=== PATIENT | female | born 1975 | race Two or more races ===

== ENCOUNTER 2022-11-06 21:36 | Emergency (ER) | payer MEDICAID, OTHER ==
[~2022-11-06] VITALS: Ht 157.5 cm; Wt 95.9 kg
[2022-11-06] MEDS ORDERED: MORPHINE SULFATE INJ 2 MG/ml SYRG IM ONE (23:15)
[2022-11-06] MEDS ORDERED: ONDANSETRON ODT 4 MG TAB PO ONE (23:15)
[2022-11-06] MEDS ORDERED: NAP500T PO (23:21)
[2022-11-06] MEDS ORDERED: CARI250T PO (23:21)
[2022-11-06 23:57] LABS: Urine Bacteria FEW /hpf (None Seen); Urine Blood Negative /uL (Negative); Urine Clarity HAZY (Clear); Urine Color Yellow (Yellow); Urine Hyaline Cast FEW /lpf (0 - 2); Urine Mucus FEW (None Seen); Urine Protein, UAD 1+ (Negative); Urine Specific Gravity 1.029 (1.001-1.035); Urine WBC 14 /hpf (0 - 5)
[2022-11-07 00:03] VITALS: BP 132/82; PULSE 64; RESP 18; O2SAT 97
[2022-11-07] MEDS ORDERED: SULF800T23 PO (00:34)
== END 2022-11-07 02:04 | disposition home or self-care (01) ==
LOC: ER 21:36
DX: M54.50 Low back pain, unspecified (principal); G89.29 Other chronic pain; N39.0 Urinary tract infection, site not specified; Z90.49 Acquired absence of other specified parts of digestive tract
CPT/HCPCS: 72131; 81001; 96372; 99285; J2270; Q0162

== ENCOUNTER 2022-11-28 04:04 | Emergency (ER) | payer MEDICAID ==
[~2022-11-28] VITALS: Ht 154.9 cm; Wt 95.0 kg
[~2022-11-28 04:04] MED LIST: CARI250T PO; NAP500T PO; SULF800T23 PO
[2022-11-28] MEDS ORDERED: ACE3T PO (04:42)
[2022-11-28] MEDS ORDERED: CYCL-837 PO (04:42)
[2022-11-28] MEDS ORDERED: HYDROmorphone HCL 2 MG/ML VL/or syr IM ONE (04:45)
[2022-11-28] MEDS ORDERED: ONDANSETRON ODT 4 MG TAB PO ONE (04:45)
[2022-11-28 05:06] VITALS: O2SAT 98
[2022-11-28 05:32] VITALS: BP 131/81; PULSE 71; RESP 18
== END 2022-11-28 05:40 | disposition home or self-care (01) ==
LOC: ER 04:04
DX: G89.29 Other chronic pain (principal); M54.59 Other low back pain; Z79.899 Other long term (current) drug therapy; Z90.49 Acquired absence of other specified parts of digestive tract
CPT/HCPCS: 96372; 99283; J1170; Q0162

== ENCOUNTER 2022-11-30 09:41 | Inpatient (IN) | payer MEDICAID ==
[~2022-11-30] VITALS: Ht 154.9 cm; Wt 94.7 kg
[~2022-11-30 09:41] MED LIST changes: +ACE3T PO; +CYCL-837 PO
[2022-11-30 10:37] LABS: Basophils # (auto) 0 10 ^3/uL (0-0.2); Basophils % (auto) 0.4 % (0.0-2.0); Eosinophils # (auto) 0.1 10 ^3/uL (0-0.8); Lymphocytes # (auto) 1.7 10 ^3/uL (0.4-5.4); Lymphocytes % (auto) 24.2 % (10.0-50.0); Mean Corpuscular Hemoglobin 29.4 pg (28.0-32.0); Mean Corpuscular Hgb Conc. 33.2 g/dL (32.0-36.0); Mean Corpuscular Volume 88.6 fL (80.0-100.0); Monocytes # (auto) 0.3 10 ^3/uL (0-1.3); Monocytes % (auto) 4.6 % (0.0-12.0); Neutrophils # (auto) 4.9 10 ^3/uL (1.6-8.6); Neutrophils % (auto) 69.8 % (37.0-80.0); Red Cell Distribution Width 14.8 % (11.8-14.3); White Blood Cell 7.1 10^3/uL (4.4-10.8)
[2022-11-30 10:59] LABS: Alanine Aminotransferase 37 U/L (7-40); Albumin 4.7 g/dL (3.2-4.8); Alkaline Phosphatase 79 U/L (46-116); Anion Gap 5 (5-15); Aspartate Aminotransferase 19 U/L (13-40); BUN/Creatinine Ratio 15.3 (10.0-20.0); Blood Urea Nitrogen 9 mg/dL (9-23); Calcium 9.4 mg/dL (8.7-10.4); Carbon Dioxide 31 mmol/L (20-30); Chloride 104 mmol/L (98-107); Glucose 100 mg/dL (74-106); Magnesium 2.2 mg/dL (1.6-2.6); Potassium 3.9 mmol/L (3.5-5.1); Sodium 140 mmol/L (136-145)
[2022-11-30 11:00] LABS: Bilirubin, Total 0.6 mg/dL (0.2-1.0); Total Protein 6.7 g/dL (5.7-8.2)
[2022-11-30] MEDS ORDERED: methylPREDNISolone SOD SUCC 40 MG/ML VL IM ONE (13:30)
[2022-11-30] MEDS ORDERED: PRED20TA2 PO (15:32)
[2022-11-30] MEDS ORDERED: PRED10TA PO (15:32)
[2022-11-30] MEDS ORDERED: PANT40TA2 PO (15:32)
[2022-11-30] MEDS ORDERED: ONDANSETRON HCL 4 MG/2 ML VIAL IV ONE (16:15)
[2022-11-30] MEDS ORDERED: HYDROmorphone HCL 2 MG/ML VL/or syr IV ONE (16:15)
[2022-11-30 19:37] VITALS: O2SAT 94
[2022-11-30] MEDS ORDERED: CARISOPRODOL 350 MG TAB PO PRN (21:15)
[2022-11-30] MEDS ORDERED: TEMAZEPAM 15 MG CAP PO PRN (21:15)
[2022-11-30] MEDS ORDERED: ONDANSETRON HCL 4 MG/2 ML VIAL IV PRN (21:15)
[2022-11-30] MEDS ORDERED: NITROGLYCERIN 0.4 MG SL TAB SL PRN (21:15)
[2022-11-30] MEDS ORDERED: ACETAMINOPHEN 325 MG TAB PO PRN (21:15)
[2022-11-30] MEDS ORDERED: HYDROcodone-ACET 5/325MG TAB PO PRN (21:15)
[2022-11-30] MEDS ORDERED: DOCUSATE SOD 100 MG CAP PO PRN (21:15)
[2022-11-30] MEDS ORDERED: MORPHINE SULFATE INJ 2 MG/ml SYRG IV PRN ×2 (21:15)
[2022-12-01] VITALS (8 sets, daily range): BP systolic 121–129; BP diastolic 56–76; PULSE 67–105; RESP 12–22; TEMP 98–98.4; O2SAT 94–98
[2022-12-01] MEDS: ENOXAPARIN SOD 40 MG/0.4 ML SYRINGE SC SCH (08:55)
[2022-12-01] MEDS: LISINOPRIL 10 MG TAB PO SCH (08:55)
[2022-12-01] MEDS: PANTOPRAZOLE 40 MG TAB PO SCH (08:55)
[2022-12-01] MEDS ORDERED: DexAMETHasone SOD PHOS 10MG/1ML VIAL INJ IV SCH (10:00)
[2022-12-01] MEDS: methylPREDNISolone SOD SUCC 40 MG/ML VL IV SCH ×2 (13:09→21:27)
[2022-12-02 05:00] VITALS: BP 110/59; PULSE 70; RESP 22; TEMP 98.1; O2SAT 96
[2022-12-02] MEDS: methylPREDNISolone SOD SUCC 40 MG/ML VL IV SCH ×2 (05:23→14:00)
[2022-12-02 08:00] VITALS: PULSE 71
[2022-12-02 08:40] VITALS: BP 131/79; PULSE 78; RESP 20; TEMP 98.1; O2SAT 97
[2022-12-02] MEDS: LISINOPRIL 10 MG TAB PO SCH (09:30)
[2022-12-02] MEDS: ENOXAPARIN SOD 40 MG/0.4 ML SYRINGE SC SCH (09:31)
[2022-12-02] MEDS: PANTOPRAZOLE 40 MG TAB PO SCH (09:31)
[2022-12-02] MEDS ORDERED: METH4PAK PO (11:06)
[2022-12-02] MEDS ORDERED: PERCOT PO (11:23)
[2022-12-02] MEDS ORDERED: CARI350T28 PO (11:23)
[2022-12-02 11:50] VITALS: BP 139/74; PULSE 86; RESP 19; TEMP 97.8; O2SAT 96
[2022-12-02 13:04] VITALS: BP 131/79; TEMP 36.6
== END 2022-12-02 15:23 | disposition home or self-care (01) | DRG 347 ==
LOC: ER 09:41 → TELE 21:06 → TELE-WESTW 12-01 04:19
PROVIDERS: ADMIT Nurse Practitioner; ATTEND Nurse Practitioner
DX: M51.16 Intervertebral disc disorders with radiculopathy, lumbar region (principal); E66.01 Morbid (severe) obesity due to excess calories; M48.061 Spinal stenosis, lumbar region without neurogenic claudication; I10 Essential (primary) hypertension; G89.29 Other chronic pain; Z82.49 Family history of ischemic heart disease and other diseases of the circulatory system; Z82.5 Family history of asthma and other chronic lower respiratory diseases; Z83.3 Family history of diabetes mellitus; Z68.39 Body mass index [BMI] 39.0-39.9, adult; Z90.49 Acquired absence of other specified parts of digestive tract
CPT/HCPCS: 36415; 70450; 72131; 72148; 80053; 82962; 83735; 84484; 84702; 85025; 93005; 93970; G0378; J1100; J2405

== ENCOUNTER 2023-11-11 06:05 | Emergency (ER) | payer MEDICAID ==
[~2023-11-11] VITALS: Ht 152.4 cm; Wt 67.0 kg
[~2023-11-11 06:05] MED LIST changes: +CARI-579 PO; -CYCL-837 PO; +METH4PAK PO; +PANT40TA2 PO; +PERCOT PO; -SULF800T23 PO
[2023-11-11] MEDS: ONDANSETRON ODT 4 MG TAB PO ONE (07:10)
[2023-11-11 07:12] VITALS: PULSE 71; RESP 19; O2SAT 98
[2023-11-11 07:16] LABS: Urine Bacteria FEW /hpf (None Seen); Urine Blood Negative /uL (Negative); Urine Clarity Turbid (Clear); Urine Color Light-Orange (Yellow); Urine Mucus FEW (None Seen); Urine Protein, UAD TRACE (Negative); Urine Specific Gravity 1.028 (1.001-1.035); Urine Urobilinogen Normal (Negative); Urine WBC 5 /hpf (0 - 5)
[2023-11-11 07:20] LABS: Basophils # (auto) 0 10 ^3/uL (0-0.2); Basophils % (auto) 0.5 % (0.0-2.0); Eosinophils # (auto) 0.3 10 ^3/uL (0-0.8); Monocytes # (auto) 0.3 10 ^3/uL (0-1.3); Monocytes % (auto) 6.3 % (0.0-12.0)
[2023-11-11 07:21] LABS: Eosinophils % (auto) 6.5 % (0.0-7.0); Hematocrit 29.1 % (36.0-46.0); Hemoglobin 9.8 g/dL (12.2-16.2); Lymphocytes # (auto) 1.2 10 ^3/uL (0.4-5.4); Lymphocytes % (auto) 25.4 % (10.0-50.0); Mean Corpuscular Hemoglobin 26.9 pg (28.0-32.0); Mean Corpuscular Hgb Conc. 33.5 g/dL (32.0-36.0); Mean Corpuscular Volume 80.3 fL (80.0-100.0); Neutrophils % (auto) 61.3 % (37.0-80.0); Platelet Count (auto) 455 10^3/uL (140-450); Red Blood Cells 3.63 10^6/uL (4.0-5.20); White Blood Cell 4.8 10^3/uL (4.4-10.8)
[2023-11-11 07:27] LABS: Chloride 107 mmol/L (98-107); Sodium 140 mmol/L (136-145)
[2023-11-11 07:28] LABS: Anion Gap 5 (5-15); Carbon Dioxide 28 mmol/L (20-30)
[2023-11-11 07:33] LABS: Blood Urea Nitrogen 7 mg/dL (9-23); Glucose 96 mg/dL (74-106)
[2023-11-11] MEDS ORDERED: NITR-87 PO (08:22)
[2023-11-11] MEDS ORDERED: ZOFR4T PO (08:22)
[2023-11-11 09:35] VITALS: BP 127/72; PULSE 69; RESP 18; TEMP 98.7; O2SAT 100
== END 2023-11-11 09:44 | disposition home or self-care (01) ==
LOC: ER 06:05
DX: N39.0 Urinary tract infection, site not specified (principal); Z98.890 Other specified postprocedural states; Z79.899 Other long term (current) drug therapy
CPT/HCPCS: 36415; 80048; 81001; 85025; 99283; Q0162

== ENCOUNTER 2024-09-09 14:41 | Emergency (ER) | payer MEDICAID ==
[~2024-09-09] VITALS: Ht 157.5 cm; Wt 58.2 kg
[~2024-09-09 14:41] MED LIST changes: +NITR-87 PO; +ZOFR4T PO
[2024-09-09 15:51] LABS: Urine Bacteria None Seen /hpf (None Seen)
--- NOTE | 2024-09-09 15:52 | ED.PDOC ---
History of Present Illness HPI Comments Patient is a 48-year-old female with a past medical history of spinal fusion status post repair, bilateral lower extremity neuropathy, generalized anxiety disorder presented to the ED with a chief complaint of suprapubic pain. Patient reported 1 week history of suprapubic pain which has been worsening, the pain is sharp burning in character, moderate in intensity with intermittent episodes of severe pain. Patient reported of increased frequency of urination and urgency and chills for the last 1 week associated and also reported of mild nausea. Patient denied any fever, vomiting, any other abdominal pain. Chief Complaint: Pelvic Pain Time Seen by MD: 15:13 Primary Care Provider: UNKNOWN Reviewed Notes: Nurses Notes, Medications, Allergies Allergies: Coded Allergies: NO KNOWN ALLERGIES (Unverified , 11/06/22) Home Meds Active Scripts Ondansetron Odt 4MG Tab (ZOFRAN PO) 4 Mg Tb, 4 MG PO DAILY for 5 Days, #5 TAB ODT TAB-DISSOLVE IN MOUTH, THEN SWALLOW Prov:RODRIGUEZ HUTCHISON MD 11/11/23 Nitrofurantoin Monohydrate Mac (Macrobid) 100 Mg Cap, 100 MG PO BID for 5 Days, #10 CAP Prov:RODRIGUEZ HUTCHISON MD 11/11/23 Oxycodone W/ Acetaminophen (Percocet 5/325MG) 1 Tab Tb, 1 TAB PO TID, #90 TAB Prov:SILVIA VENEGAS NP 12/02/22 Carisoprodol (Carisoprodol) 350 Mg Tab, 350 MG PO Q8HP PRN for 10 Days, #30 TAB Prov:SILVIA VENEGAS NP 12/02/22 Methylprednisolone (Medrol Dosepak) 4 Mg Axel, 4 MG PO UD, #21 TAB UAD Prov:SILVIA VENEGAS NP 12/02/22 Pantoprazole Sodium Sesquihydr (Protonix) 40 Mg Tab, 40 MG PO DAILY for 14 Days, #14 TAB Prov:RODRIGUEZ HUTCHISON MD 11/30/22 Acetaminophen W/ Codeine (Tylenol W/Cod #3) 1 Tab Tb, 1 TAB PO QIDP, #10 TAB 0 Refills Prov:TROY MORENO 11/28/22 Naproxen (NAPROSYN TABLET) 500 Mg Tb, 1 TAB PO BID PRN, #30 TAB 0 Refills Prov:TROY MORENO 11/06/22 Carisoprodol (Soma) 250 Mg Tab, 250 MG PO QHSP, #14 TAB 0 Refills Prov:TROY MORENO 11/06/22 Information Source: Patient Mode of Arrival: Ambulatory Severity: Mild Timing: Days Duration: Since onset, Intermittent Prehospital treatment: None Location: Suprapubic and lower back Quality Sharp, burning, intermittent Past Medical History PAST MEDICAL HISTORY: Denies Past Medical History (Other): Bilateral lower extremity neuropathy, generalized anxiety disorder Surgical History: Cholecystectomy Surgical History (Other): Back surgery for spinal fusion from T12-S1 [employer] History: Unknown Family History Family History: Unknown Social History Smoker: Non-Smoker Alcohol: Denies ETOH Use Drugs: Denies Drug Use Lives In: Home Constitutional: reports: chills, malaise EENTM: denies: blurred vision, double vision, ear bleeding, ear discharge, ear drainage, ear pain, ear ringing, eye pain, eye redness, hearing loss, mouth pain, mouth swelling, nasal discharge, nose bleeding, nose congestion, nose pain, photophobia, tearing, throat pain, throat swelling, voice changes, others Respiratory: denies: cough, hemoptysis, orthopnea, SOB at rest, shortness of breath, SOB with excertion, stridor, wheezing, others Cardiovascular: denies: chest pain, dizzy spells, diaphoresis, Dyspnea on exertion, edema, irregular heart beat, left arm pain, lightheadedness, palpita tions, PND, syncope, others Gastrointestinal: denies: abdomen distended, abdominal pain, blood streaked mateo wels, constipated, diarrhea, dysphagia, difficulty swallowing, hematemesis, melena, nausea, poor appetite, poor fluid intake, rectal bleeding, rectal pain, vomiting, others Genitourinary: reports: burning, frequency, urgency Neurological: denies: dizziness, fainting, headache, left sided numbness, left sided weakness, numbness, paresthesia, pre-existing deficit, right sided numbness, right sided weakness, seizure, speech problems, tingling, tremors, weakness, others Musculoskeletal: reports: back pain (Lower back pain) Integumetry: denies: bruises, change in color, change in hair/nails, dryness, laceration, lesions, lumps, rash, wounds, others Allergic/Immunocompromised: denies: Difficulty Healing, Frequent Infections, Hives, Itching, others Hematologic/Lymphatic: denies: anemia, blood clots, easy bleeding, easy bruis ing, swollen glands, others Endocrine: denies: excessive hunger, excessive sweating, excessive thirst, exc essive urination, flushing, intolerance to cold, intolerance to heat, unexplained weight gain, unexplained weight loss, others Psychiatric: denies: anxiety, bipolar disorder, depression, hopeless, panic disorder, schizophrenia, sleepless, suicidal, others Physical Exam General Appearance: No Apparent Distress, Normal HEENT: Normal ENT Inspection, Pharynx Normal, TMs Normal Neck: Full Range of Motion, Non-Tender, Normal, Normal Inspection Respiratory: Chest Non-Tender, Lungs Clear, No Accessory Muscle Use, No Resp iratory Distress, Normal Breath Sounds Cardiovascular: No Edema, No JVD, No Murmur, No Gallop, Normal Peripheral Pulses, Regular Rate/Rhythm Breast Exam: Deferred Gastrointestinal: No Organomegaly, Normal Bowel Sounds, Suprapubic, Tenderness Genitalia: Deferred Pelvic: Deferred Rectal: Deferred Extremities: No calf tenderness, Normal capillary refill, Normal inspection, Normal range of motion, Non-tender, No pedal edema Neurologic: Alert, agile scrum coach II-XII nml as Tested, No Motor Deficits, Normal Affect, Normal Mood, No Sensory Deficits Cerebellar Function: Normal Reflexes: Normal Skin: Dry, Normal Color, Warm Lymphatic: No Adenopathy Was a procedure done? Was a procedure done?: No Differential Dx Considerations may include: UTI, acute cystitis, acute pyelonephritis X-Ray, Labs, Meds, VS Vital Signs Date Time Temp Pulse Resp B/P (MAP) Pulse Ox O2 Delivery O2 Flow Rate FiO2 09/09/24 15:07 98.7 85 16 153/83 (106) 99 98.7 Lab Test 09/09/24 15:42 09/09/24 15:00 Range/Units White Blood Count 5.2 4.4-10.8 10^3/uL Red Blood Count 4.47 4.0-5.20 10^6/uL Hemoglobin 11.6 L 12.2-16.2 g/dL Hematocrit 35.1 L 36.0-46.0 % Mean Corpuscular Volume 78.6 L 80.0-100.0 fL Mean Corpuscular Hemoglobin 25.9 L 28.0-32.0 pg Mean Corpuscular Hemoglobin Concent 32.9 32.0-36.0 g/dL Red Cell Distribution Width 15.7 H 11.8-14.3 % Platelet Count 362 140-450 10^3/uL Mean Platelet Volume 7.4 6.9-10.8 fL Neutrophils (%) (Auto) 65.5 37.0-80.0 % Lymphocytes (%) (Auto) 26.1 10.0-50.0 % Monocytes (%) (Auto) 6.4 0.0-12.0 % Eosinophils (%) (Auto) 1.5 0.0-7.0 % Basophils (%) (Auto) 0.5 0.0-2.0 % Neutrophils # (Auto) 3.4 1.6-8.6 10 ^3/uL Lymphocytes # (Auto) 1.4 0.4-5.4 10 ^3/uL Monocytes # (Auto) 0.3 0-1.3 10 ^3/uL Eosinophils # (Auto) 0.1 0-0.8 10 ^3/uL Basophils # (Auto) 0 0-0.2 10 ^3/uL Nucleated Red Blood Cells 0.0 % Sodium Level 142 136-145 mmol/L Potassium Level 3.7 3.5-5.1 mmol/L Chloride Level 105 98-107 mmol/L Carbon Dioxide Level 28 20-31 mmol/L Anion Gap 9 5-15 Blood Urea Nitrogen 16 9-23 mg/dL Creatinine 0.65 0.550-1.02 mg/dL Glomerular Filtration Rate Calc 110 >90 mL/min BUN/Creatinine Ratio 24.6 H 10.0-20.0 Serum Glucose 96 74-106 mg/dL Calcium Level 10.1 8.7-10.4 mg/dL Urine Color Yellow Yellow Urine Clarity Turbid H Clear Urine pH 6.0 5.0-9.0 Urine Specific Stacy 1.038 H 1.001-1.035 Urine Protein Trace H Negative Urine Ketones Negative Negative Urine Blood Negative Negative /uL Urine Nitrite Negative Negative Urine Bilirubin Negative Negative Urine Urobilinogen 3 H Negative mg/dL Urine Leukocyte Esterase Negative Negative /uL Urine RBC 1 0 - 4 /hpf Urine Microscopic WBC 1 0-5 /HPF Urine Squamous Epithelial Cells Few <5 /hpf Urine Bacteria None seen None Seen /hpf Urine Mucus Few None Seen Urine Glucose Normal Normal mg/dL Urine Test Negative Negative Patient came in with a chief complaint of suprapubic pain and symptoms of increased frequency, urgency of urination. She also reported of lower back pain. Lab investigations including CBC, BMP, urinalysis were ordered. CBC showed mild microcytic hypochromic anemia, BMP was grossly normal with mildly increased BUN to creatinine ratio and urinalysis showed increased urine specific gravity without any evidence of a urinary tract infection. On re-evaluation her suprapubic pain had decreased and eventually she did not report of any pain. Patient does have history of chronic back pain from spinal fusion for which she underwent a surgery last year. Patient was advised to drink plenty of water. For the lower back pain patient was advised to continue on the pain medication as she has been prescribed and recommended physical therapy. Since the urinary tract infection was ruled out, the suprapubic pain could be due to painful menstruation, musculoskeletal pain, possible uterine fibroids for which the patient is advised to visit primary care/OBGYN get a pelvic ultrasonography done as an outpatient. Patient has been discharged in stable condition to home Time of 1ST Reevaluation: 16:30 Reevaluation 1ST: Improved Time of 2ND Reevaluation: 17:30 Reevaluation 2ND: Improved Patient Education/Counseling: Diagnosis, Treatment, Need For Follow Up Family Education/Counseling: Diagnosis, Treatment, Need For Follow Up SEPSIS Sepsis Screen Date sepsis recognized/suspect: Sep 09, 2024 Time Sepsis recognized/suspect: 1500 Recent Procedure: No On Antibiotic Therapy: No Respiratory Rate >20: No Heart Rate >90: No Temp<36 C (96.8 F) or >38.3 C: No SBP <90 or MAP <65 mmHG: No New Acute Mental Status Change: No Is the patient on CPAP, BIPAP,: No Vital Signs Date Time Temp Pulse Resp B/P (MAP) Pulse Ox O2 Delivery O2 Flow Rate FiO2 09/09/24 15:07 98.7 85 16 153/83 (106) 99 98.7 Laboratory Tests Test 09/09/24 15:42 White Blood Count 5.2 10^3/uL (4.4-10.8) Departure 1 Departure Time of Disposition: 17:58 Impression: Primary Impression: Acute exacerbation of chronic low back pain Additional Impressions: Degenerative disc disease Musculoskeletal pain Disposition: HOME / SELF CARE / HOMELESS Condition: Good Critical Care Note Critical Care Time?: No Stability Stability form required: No Heart Score Heart Score: Heart Score Response (Comments) Value History N/A 0 EKG N/A 0 Age N/A 0 Risk Factors N/A 0 Troponin N/A 0 Total 0 [place] GARCIA RESIDENT Sep 09, 2024 15:52
[2024-09-09 16:13] LABS: Basophils # (auto) 0 10 ^3/uL (0-0.2); Basophils % (auto) 0.5 % (0.0-2.0); Eosinophils # (auto) 0.1 10 ^3/uL (0-0.8); Eosinophils % (auto) 1.5 % (0.0-7.0); Hematocrit 35.1 % (36.0-46.0); Hemoglobin 11.6 g/dL (12.2-16.2); Lymphocytes # (auto) 1.4 10 ^3/uL (0.4-5.4); Lymphocytes % (auto) 26.1 % (10.0-50.0); Mean Corpuscular Hemoglobin 25.9 pg (28.0-32.0); Mean Corpuscular Hgb Conc. 32.9 g/dL (32.0-36.0); Mean Corpuscular Volume 78.6 fL (80.0-100.0); Monocytes # (auto) 0.3 10 ^3/uL (0-1.3); Monocytes % (auto) 6.4 % (0.0-12.0); Neutrophils # (auto) 3.4 10 ^3/uL (1.6-8.6); Neutrophils % (auto) 65.5 % (37.0-80.0); Platelet Count (auto) 362 10^3/uL (140-450); Red Blood Cells 4.47 10^6/uL (4.0-5.20); Red Cell Distribution Width 15.7 % (11.8-14.3); White Blood Cell 5.2 10^3/uL (4.4-10.8)
[2024-09-09 16:25] LABS: Chloride 105 mmol/L (98-107); Potassium 3.7 mmol/L (3.5-5.1); Sodium 142 mmol/L (136-145)
[2024-09-09 16:26] LABS: Anion Gap 9 (5-15); Calcium 10.1 mg/dL (8.7-10.4); Carbon Dioxide 28 mmol/L (20-31)
[2024-09-09 16:30] LABS: Urine Blood Negative /uL (Negative); Urine Clarity Turbid (Clear); Urine Color Yellow (Yellow); Urine Mucus FEW (None Seen); Urine Protein, UAD TRACE (Negative); Urine Specific Gravity 1.038 (1.001-1.035); Urine Squamous Epithelial Cell FEW /hpf (<5); Urine Urobilinogen 3 mg/dL (Negative); Urine WBC 1 /HPF (0-5)
[2024-09-09 16:31] LABS: BUN/Creatinine Ratio 24.6 (10.0-20.0); Blood Urea Nitrogen 16 mg/dL (9-23); Glucose 96 mg/dL (74-106)
[2024-09-09 19:00] VITALS: BP 123/77; PULSE 71; RESP 20; TEMP 98; O2SAT 100
== END 2024-09-09 21:34 | disposition home or self-care (01) ==
LOC: ER 14:41
DX: G89.29 Other chronic pain (principal); M79.18 Myalgia, other site; M51.34 Other intervertebral disc degeneration, thoracic region; Z90.49 Acquired absence of other specified parts of digestive tract; Z79.899 Other long term (current) drug therapy; Z98.1 Arthrodesis status; Z87.898 Personal history of other specified conditions
CPT/HCPCS: 36415; 80048; 81001; 81025; 85025